=== PATIENT | female | born 1990 | race Hispanic/Latino ===

== ENCOUNTER 2016-08-18 07:41 | Inpatient (IN) | payer OTHER, MEDICAID ==
[~2016-08-18] VITALS: Ht 167.6 cm; Wt 92.3 kg
[2016-08-18] VITALS (14 sets, daily range): BP systolic 91–121; BP diastolic 51–65
[~2016-08-18 07:41] MED LIST: DOXY-182 PO; HYDR-3702 PO; IBP200T PO; NAPR500T PO; PNV1CAPS13 PO
[2016-08-18] MEDS ORDERED: PREN-148 PO (08:16)
[2016-08-18] MEDS ORDERED: SODIUM CHLORIDE FLUSH 3 ML SYR IV PRN (09:40)
[2016-08-18] MEDS ORDERED: SODIUM CHLORIDE FLUSH 10 ML SYR IV PRN (09:40)
[2016-08-18 12:59] LABS: BILIRUBIN,URINE Negative (Negative); CLARITY,URINE Clear; COLOR,URINE Yellow; GLUCOSE, URINE (UA) Negative (Negative); LEUKOCYTE ESTERASE ,URINE Trace (Negative); PH,URINE 5.5 (5.0 - 8.0); UROBILINOGEN,URINE 0.2 mg/dL (0.2-1.0)
[2016-08-18 13:12] LABS: URINE CENTRIFUGED VOLUME 12 mL
[2016-08-18] MEDS ORDERED: OXYTOCIN INJ 20 UNIT in NS 1000ml 1,000 ML IV PRN (13:32)
[2016-08-18] MEDS ORDERED: CALCIUM CARBONATE CHEWABLE 300 MG (TUMS) TABLET PO PRN (13:35)
[2016-08-18] MEDS ORDERED: AMPICILLIN INJ 2,000 MG in SODIUM CHLORIDE 100 ML IV SCH (13:35)
[2016-08-18 14:26] LABS: MEAN CORPUSCULAR HEMOGLOBIN 28.1 PG (26.0-34.0); MEAN CORPUSCULAR HGB CONC 32.7 g/dL (31.0-37.0); MEAN PLATELET VOLUME 10.7 FL (6.0-9.5); WHITE BLOOD COUNT 9.58 10^3uL (4.0-11.0)
[2016-08-18] MEDS ORDERED: AMPICILLIN INJ 1,000 MG in SODIUM CHLORIDE 50 ML IV SCH (17:35)
[2016-08-18] MEDS ORDERED: POT BICARB/SOD BICARB/CIT AC (ALKA-SELTZER GOLD) 1 TABLET.EFF PO ONE (19:25)
[2016-08-18] MEDS ORDERED: ceFAZolin 1000 MG (ANCEF) VIAL ONE (19:25)
[2016-08-18] MEDS ORDERED: METOCLOPRAMIDE 10 MG/2 ML (REGLAN) VIAL ONE (19:26)
[2016-08-18] MEDS ORDERED: SODIUM CHLORIDE 50 ML IV ONE (19:26)
[2016-08-18] MEDS ORDERED: morphine PF 0.5 MG/ML (DURAMORPH) 10 ML VIAL IV ONE (19:27)
[2016-08-18] MEDS ORDERED: ROPIVACAINE 1% 10 MG/ML (NAROPIN) 20 ML AMPUL ONE (19:27)
--- NOTE | 2016-08-18 19:28 | History and Physical (E) ---
History & Physical (OB) Subjective: CC: contractions 26 year old at 36 1/7 WGA by 8 week ultrasound presented this morning with regular contractions. Upon presentation, she was a very hard cervical check, but was finally determined to be closed. She continued to contract every 3-5 minutes and cervix progressed to 2cm despite fluid resuscitation, and so was admitted for labor. Ampicillin was started for GBS prophylaxis due to unknown status and less than 37 weeks. has been complicated by influenza at 19 weeks, 2nd trimester bleeding, and equivalent rubella status. PNC: [facility] Hx: at 39 and 38 weeks. PMHx:none PSHx: Tasha to Dany. 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 No tob/EtOH/ILD. Allergies: Coded Allergies: No Known Drug Allergies (Unverified , 03/11/13) Home Medications: Reported Medications Vit #76/Iron,Carb/Fa (Pnv 29-1 Tablet)1 Each Tablet1 Each PO DAILY 08/18/16 Discontinued Scripts Doxycycline Hyclate 100 Mg Tablet.dr100 Mg PO BID #13 TAB Prov:EDE ROGER MD 12/24/14 Hydrocodone/Acetaminophen (Petal 5mg/325mg)1 Each Tablet1 Tab PO TID PRN #8 TAB Ref 0 Prov:EDE ROGER MD 12/24/14 Naproxen (Naprosyn)500 Mg Brnhao809 Mg PO BID Pain #15 TAB Prov:EDE ROGER MD 12/24/14 Objective: Vital Signs Date Time Temp Pulse Resp B/P Pulse Ox O2 Delivery O2 Flow Rate FiO2 08/18/16 18:30 08/18/16 17:20 81 18 08/18/16 14:45 97.4 Laboratory Results Past 24 Hrs 08/18/16 12:15: Urine Bacteria None seen, Urine Bilirubin Negative, Urine Blood Trace-lysed, Urine Clarity Clear, Urine Collection Type Clean catch, Urine Color Yellow, Urine Glucose (UA) Negative, Urine Ketones Trace, Urine Leukocyte Esterase Trace , Urine Microscopic RBC 2-5, Urine Nitrite Negative, Urine Protein Negative, Urine Specific [place] <=1.005, Urine Squamous Epithelial Cells 2-5, Urine Urobilinogen 0.2, Urine WBC 10-20, Urine pH 5.5, Volume Urine Centrifuged 12 ml 08/18/16 14:05: Hematocrit 36.40, Hemoglobin 11.9, Mean Corpuscular Hemoglobin 28.1, Mean Corpuscular Hemoglobin Concent 32.7, Mean Corpuscular Volume 86, Mean Platelet Volume 10.7, Platelet Count 264, Red Blood Count 4.24, Red Cell Distribution Width 15.3, White Blood Count 9.58 General: Alert and oriented, NAD Chest: CTA Abdomen: Gravid Cardiovasular: RRR, No murmur Extremities: No edema FHT's: 140s mod reactive, +accels, no decels. Cat I. Cx: 4/50/-3. AROM performed and hand felt presenting above the head. [place]: Q2-5min Screenings: Blood type: O Positive, Rubella Immune, RPR non-reactive, HBV Negative, HIV Negative , GBS unknown Problems/Plans: (1) Compound presentation of fetus Assessment & Plan: There has been no real progress of labor, and patient has a history of quick, easy deliveries, so I do not think this presentation with the hand will progress vaginally. Discussed , risks and benefits. Questions were elicited and answered. Will proceed with urgent . (2) 36 weeks gestation of (3) Uterine contractions during Additional Copies to: End of Report . PETEY MARC MD Aug 18, 2016 19:28
--- NOTE | 2016-08-18 20:05 | Progress Note (E) ---
Progress Note Epidural placed and brought up. Recheck of cervix is /-3, still not well engaged in the pelvis, but no more hand felt. Will hold on the section for now and see if she makes some progress. FHT remain Cat I. PETEY MARC MD Aug 18, 2016 20:05
[2016-08-18] MEDS ORDERED: METOCLOPRAMIDE 10 MG/2 ML (REGLAN) VIAL IV SCH (20:20)
[2016-08-18] MEDS ORDERED: POT BICARB/SOD BICARB/CIT AC (ALKA-SELTZER GOLD) 1 TABLET.EFF PO SCH (20:20)
--- NOTE | 2016-08-18 20:50 | Progress Note (E) ---
Progress Note No progress of cervical dilation, and head still not well engaged. Will proceed with section for likely OP presentation. PETEY MARC MD Aug 18, 2016 20:50
[2016-08-18 21:27] LABS: BILIRUBIN,URINE Negative (Negative); COLOR,URINE Yellow; GLUCOSE, URINE (UA) Negative (Negative); LEUKOCYTE ESTERASE ,URINE Negative (Negative); PH,URINE 5.5 (5.0 - 8.0); UROBILINOGEN,URINE 0.2 mg/dL (0.2-1.0)
[2016-08-18 21:53] LABS: CLARITY,URINE Slightly Cloudy
[2016-08-18] MEDS ORDERED: OXYTOCIN 10 UNIT/ML (PITOCIN) 1 ML VIAL ONE (21:54)
[2016-08-18] MEDS ORDERED: OXYTOCIN INJ 20 UNIT in NS 1000ml 1,000 ML IV SCH (22:29)
[2016-08-18] MEDS ORDERED: LANOLIN OINTMENT 28 GM TUBE TOP PRN (22:30)
[2016-08-18] MEDS ORDERED: M-M-R II (MEASLES,MUMPS,RUBELLA) VACCINE SC ONE (22:30)
[2016-08-18] MEDS: IBUPROFEN 600 MG (MOTRIN) TAB PO SCH (22:30)
[2016-08-19 00:15] VITALS: BP 98/52
[2016-08-19] MEDS ORDERED: NALBUPHINE 10 MG/ML (NUBAIN) 1 ML AMP ONE (00:35)
[2016-08-19] MEDS: NALBUPHINE 10 MG/ML (NUBAIN) 1 ML AMP IV PRN ×2 (01:15→05:01)
[2016-08-19 01:25] VITALS: BP 98/52
[2016-08-19] MEDS ORDERED: ONDANSETRON 2 MG/ML (Z0FRAN) 2 ML VIAL IV PRN (01:40)
[2016-08-19] MEDS ORDERED: diphenhydrAMINE 50 MG/ML INJ (BENADRYL) IV PRN (01:40)
[2016-08-19] MEDS ORDERED: NALBUPHINE 10 MG/ML (NUBAIN) 1 ML AMP IV PRN (01:40)
[2016-08-19] MEDS ORDERED: OXYTOCIN 10 UNIT/ML (PITOCIN) 1 ML VIAL ONE (04:22)
[2016-08-19] MEDS: IBUPROFEN 600 MG (MOTRIN) TAB PO SCH ×4 (04:30→22:30)
[2016-08-19 07:07] LABS: MEAN CORPUSCULAR HEMOGLOBIN 27.8 PG (26.0-34.0); MEAN PLATELET VOLUME 10.5 FL (6.0-9.5); WHITE BLOOD COUNT 10.69 10^3uL (4.0-11.0)
[2016-08-19 07:15] VITALS: BP 99/58
[2016-08-19] MEDS: oxyCODONE/ACETAMINOPHEN 5MG-325 MG (PERCOCET) TABLET PO PRN ×3 (10:01→22:42)
[2016-08-19 11:00] VITALS: BP 116/60
[2016-08-19] MEDS ORDERED: SODIUM CHLORIDE FLUSH 10 ML ONE (11:11)
--- NOTE | 2016-08-19 12:13 | C Section Operative Report (E) ---
C Section Operative Report 08/18/16 ,22:25 Pre-Operative Diagnosis: 1. intrauterine 36 1/7 weeks 2. Active labor 3. Failure to progress Post-Operative Diagnosis: 1. intrauterine 36 1/7 weeks 2. Active labor 3. Failure to progress Operation: Primary low transverse section Surgeon: Elmer Mcneil MD Offal Icer Poultry: Arlet Hayden MD Anesthesia: Epidural Complications: None. Findings: 1. Viable male , weight 6 pounds 4 ounces, 2830 grams, Apgars 9//9 2. Normal uterus, tubes and ovaries EBL: 1200ml Procedure: Patient was advised of risks of procedure and elected to proceed. Please see history and physical for further details. Epidural was placed in the preoperative room, and then patient was taken to operating room. Patient was prepped and draped in the usual sterile fashion. Time out was performed. Anesthesia was tested and found to be adequate. A Pfannenstiel incision was made and carried to the level of fascia. The fascial incision was then extended laterally with Grande scissors. The superior fascia was grasped with Shai clamps and dissected away from the underlying musculature bluntly and with Grande scissors. The inferior fascia was then grasped with Kochers and dissected away bluntly. The abdominal cavity was then entered bluntly. The bladder blade was placed. A bladder flap was created with Grande scissors. The bladder blade was replaced. A low transverse uterine incision was made with scalpel and the uterus was entered. The vertex was grasped and baby delivered atraumatically with fundal pressure. The cord was clamped and cut, and baby was handed to waiting nursing personnel. The placenta was then delivered manually. The uterus was exteriorized and wiped free of clots and decidua. The uterine incision was grasped with ring forceps. The uterine incision was then repaired in a running, locking fashion with 0 Vicryl. It was then imbricated with a running, non- locking suture of 0 Vicryl, and a few figure of eight sutures with 0 Vicryl were placed for hemostasis. The uterus was returned to the abdominal cavity, and the pericolic gutters were inspected and found to be dry. The peritoneum was then closed with a running, non-locking suture of 2-0 Vicryl. The fascia was closed with a running, non-locking suture of 0 Vicryl. The skin was then closed with Insorb stapler. Counts were correct x2. The patient was returned to the postoperative room in stable condition. PETEY MCNEIL MD Aug 18, 2016 22:29
--- NOTE | 2016-08-19 12:27 | Progress Note (E) ---
Post- Progress Note Subjective: Doing well. Has not ambulated yet, just up at the side of the bed. Yepez still in. Pain controlled. No flatus. Clear diet still. Bottlefeeding. Tried to nurse once. Objective: Vital Signs Date Time Temp Pulse Resp B/P Pulse Ox O2 Delivery O2 Flow Rate FiO2 08/19/16 11:00 98.1 92 20 116/60 100 Room air I & O 08/18/16 08/19/16 19:00 07:00 Intake Total 2400 ml Output Total 575 ml 1350 ml Balance -575 ml 1050 ml Laboratory Tests 08/18/16 12:15: Urine Bacteria None seen, Urine Bilirubin Negative, Urine Blood Trace-lysed, Urine Clarity Clear, Urine Collection Type Clean catch, Urine Color Yellow, Urine Glucose (UA) Negative, Urine Ketones Trace, Urine Leukocyte Esterase Trace , Urine Microscopic RBC 2-5, Urine Nitrite Negative, Urine Protein Negative, Urine Specific [place] <=1.005, Urine Squamous Epithelial Cells 2-5, Urine Urobilinogen 0.2, Urine WBC 10-20, Urine pH 5.5, Volume Urine Centrifuged 12 ml 08/18/16 14:05: Hematocrit 36.40, Hemoglobin 11.9, Mean Corpuscular Hemoglobin 28.1, Mean Corpuscular Hemoglobin Concent 32.7, Mean Corpuscular Volume 86, Mean Platelet Volume 10.7, Platelet Count 264, Red Blood Count 4.24, Red Cell Distribution Width 15.3, White Blood Count 9.58 08/18/16 21:50: Urine Bilirubin Negative, Urine Blood Negative, Urine Clarity Slightly cloudy, Urine Collection Type Clean catch, Urine Color Yellow, Urine Glucose (UA) Negative, Urine Ketones 2+, Urine Leukocyte Esterase Negative, Urine Nitrite Negative, Urine Protein Negative, Urine Specific [place] 1.010, Urine Urobilinogen 0.2, Urine pH 5.5 08/19/16 06:55: Hematocrit 31.80, Hemoglobin 10.5, Mean Corpuscular Hemoglobin 27.8, Mean Corpuscular Hemoglobin Concent 33.0, Mean Corpuscular Volume 84, Mean Platelet Volume 10.5, Platelet Count 261, Red Blood Count 3.78, Red Cell Distribution Width 15.3, White Blood Count 10.69 Blood type: O Positive, Current Medications Oxytocin/Sodium Chloride 1,002 ml @ 0 mls/hr Q0M IV Last administered on 04:40; Admin Dose 150 MLS/HR; Start 08/18/16 at 22:29 Ibuprofen 600 mg Q6H PO Last administered on 08/19/16 04:30; Admin Dose 600 MG; Start 08/18/16 at 22:30 Oxycodone/ Acetaminophen Total acetaminophen not... Q4H PRN PO Last administered on 08/19/16 10:01; Admin Dose 1 TAB; Start 08/18/16 at 22:30 Docusate Sodium 100 mg HS PO; Start 08/19/16 at 21:00 Lanolin 28 gm PRN PRN TOP; Start 08/18/16 at 22:30 Ondansetron HCl 4 mg Q6H PRN IV; Start 08/19/16 at 01:40 General: Alert and oriented, NAD Abdomen: Soft, non-distended, fundus firm Extremities: No edema. SCDs on. Skin: Inc c/d/i Problems/Plans: (1) delivery, delivered, current hospitalization Assessment & Plan: Routine cares. Encourage ambulation, d/c IV, Yepez. (2) Rubella nonimmune status, delivered, current hospitalization Assessment & Plan: MMR prior to discharge PETEY MARC MD August 19, 2016 12:27
[2016-08-19 15:00] VITALS: BP 108/61
[2016-08-19 20:06] VITALS: BP 102/61
[2016-08-19] MEDS ORDERED: DOCUSATE SODIUM 100 MG (COLACE) CAP PO SCH (21:00)
--- NOTE | 2016-08-19 22:49 | NUR ---
Has been walking about in room for the past 45 minutes. Her mother is planning to stay the night with her. Baby rooming in. Addendum: 08/19/16 at 2251 by Luba Briones RN Amended: Links added.
[2016-08-20] MEDS: IBUPROFEN 600 MG (MOTRIN) TAB PO SCH ×2 (04:31→10:28)
[2016-08-20] MEDS: oxyCODONE/ACETAMINOPHEN 5MG-325 MG (PERCOCET) TABLET PO PRN (05:58)
[2016-08-20 08:15] VITALS: BP 98/52
[2016-08-20] MEDS ORDERED: IBUP-1772 PO (12:24)
[2016-08-20] MEDS ORDERED: DOCU100C8 PO (12:24)
[2016-08-20] MEDS ORDERED: OXYC1TAB87 PO (12:24)
[2016-08-20] MEDS ORDERED: LANO28OI TOP (12:24)
--- NOTE | 2016-08-20 12:33 | Discharge Instructions (E) ---
Discharge Instructions Instructions Do not drive while on narcotics (oxycodone). Continue stool softeners while on narcotics. Do not lift greater than 10 pounds for 2 weeks. Do not submerge incision until completely healed. Doctor's Appointment Incision check in 1 week Discharge Diet: PETEY Lloyd MD August 20, 2016 12:33
--- NOTE | 2016-08-20 12:38 | Discharge Summary (E) ---
Discharge Summary (E) Admit Date/Time Aug 18, 2016 at 13:39 Discharge Date/Time August 20, 2016 at 12:34 Admitting Provider Priya Mcneil MD Primary Care Provider Priya Mcneil MD Attending Provider Priya Mcneil MD Consulting Provider Procedures Primary LTCS Admission Diagnosis Labor History and Present Illness See History and Physical for complete details. Hospital Course and Treatment Patient was admitted for labor Friday, and did not progress, so c- section was done Friday. Procedure went well without complications. Patient had a typical postoperative course without complications. She is ambulating, voiding, passing flatus, tolerating full diet, and pain controlled with oral medications. Discharge Physicial Exam General A&O, NAD Abdomen soft, non-distended, fundus firm Extremities No edema Integumentary Inc c/d/i Laboratory/Radiology Data Laboratory Results Past 5 Days 08/18/16 12:15: Urine Bacteria None seen, Urine Bilirubin Negative, Urine Blood Trace-lysedH, Urine Clarity Clear, Urine Collection Type Clean catch, Urine Color Yellow, Urine Glucose (UA) Negative, Urine Ketones TraceH, Urine Leukocyte Esterase TraceH, Urine Microscopic RBC 2-5, Urine Nitrite Negative, Urine Protein Negative, Urine Specific [place] <=1.005, Urine Squamous Epithelial Cells 2-5, Urine Urobilinogen 0.2, Urine WBC 10-20H, Urine pH 5.5, Volume Urine Centrifuged 12 ml 08/18/16 14:05: Hematocrit 36.40, Hemoglobin 11.9L, Mean Corpuscular Hemoglobin 28.1, Mean Corpuscular Hemoglobin Concent 32.7, Mean Corpuscular Volume 86, Mean Platelet Volume 10.7H, Platelet Count 264, Red Blood Count 4.24, Red Cell Distribution Width 15.3, White Blood Count 9.58 08/18/16 21:50: Urine Bilirubin Negative, Urine Blood Negative, Urine Clarity Slightly cloudy, Urine Collection Type Clean catch, Urine Color Yellow, Urine Glucose (UA) Negative, Urine Ketones 2+H, Urine Leukocyte Esterase Negative, Urine Nitrite Negative, Urine Protein Negative, Urine Specific [place] 1.010, Urine Urobilinogen 0.2, Urine pH 5.5 08/19/16 06:55: Hematocrit 31.80L, Hemoglobin 10.5L, Mean Corpuscular Hemoglobin 27.8, Mean Corpuscular Hemoglobin Concent 33.0, Mean Corpuscular Volume 84, Mean Platelet Volume 10.5H, Platelet Count 261, Red Blood Count 3.78L, Red Cell Distribution Width 15.3, White Blood Count 10.69 Discharge Disposition To home Instructions Do not drive while on narcotics (oxycodone). Continue stool softeners while on narcotics. Do not lift greater than 10 pounds for 2 weeks. Do not submerge incision until completely healed. Appointments Incision check in 1 week Discharge Diet: Regular Discharge Medications New Medications: Docusate Sodium (Docusate Sodium) 100 Mg Capsule 100 MG PO HS #20 CAP Ibuprofen (Ibuprofen) 600 Mg Tablet 600 MG PO Q6H #20 TAB Lanolin,Anhydrous (Lanolin Hydrous) 410 Gm Oint...g. 28 GM TOP PRN PRN nipple pain #1 TUBE Oxycodone HCl/Acetaminophen (Endocet) 1 Tab Tablet 1-2 TAB PO Q4H PRN Breakthrough Pain #15 TAB Continued Medications: Vit #76/Iron,Carb/Fa (Pnv 29-1 Tablet) 1 Each Tablet 1 EACH PO DAILY TAB Follow up Follow up Referrals: Family Practice @ [facility] with Priya Mcneil [facility] - 09/30/16 with Priya Mcneil Md Discharge Diagnosis Problems: (1) delivery, delivered, current hospitalization (2) Rubella nonimmune status, delivered, current hospitalization Copies to: End of Report . PRIYA MCNEIL MD August 20, 2016 12:38
--- NOTE | 2016-08-20 14:00 | NUR ---
Discharge instruction reviewed with patient. Pt denies any concerns or questions.
--- NOTE | 2016-08-20 14:15 | NUR ---
Pt discharged ambulatory status, accompanied by mother who is carrying infant carrier, and nurse. Pt discharged to home via private vehicle.
== END 2016-08-20 14:15 | disposition home or self-care (01) | DRG 766 ==
LOC: OBGOP 07:41 → OB 07:42 → OBGOP 13:38 → OB 13:39
PROVIDERS: ADMIT Family Medicine; ATTEND Family Medicine
PROC: 10D00Z1 Extraction of Products of Conception, Low, Open Approach (ICD-10-PCS; principal; 2016-08-18)
DX: O60.14X0 Preterm labor third trimester with preterm delivery third trimester, not applicable or unspecified (principal); O64.8XX0 Obstructed labor due to other malposition and malpresentation, not applicable or unspecified; Z3A.36 36 weeks gestation of pregnancy; Z37.0 Single live birth; Z78.9 Other specified health status
CPT/HCPCS: 36415; 59510; 81003; 81015; 85027; 86850; 86900; 86901; 87088; 90707; 94762; 99205